=== PATIENT | female | born 1955 ===

== ENCOUNTER 2017-05-21 08:37 | Outpatient (CLI) | payer OTHER | END 2017-05-21 08:45 | disposition home or self-care (01) | LOC: RAD 08:37 | DX: J45.998 Other asthma (principal) ==

== ENCOUNTER 2017-05-21 09:30 | Outpatient (CLI) | payer OTHER | END 2017-05-21 09:38 | disposition home or self-care (01) | LOC: MAMO-SONO 09:30 | DX: Z12.31 Encounter for screening mammogram for malignant neoplasm of breast (principal); Z87.898 Personal history of other specified conditions; Z12.39 Encounter for other screening for malignant neoplasm of breast ==